=== PATIENT | male | born 1955 | race Caucasian/White ===

== ENCOUNTER 2019-10-03 19:22 | Emergency (ER) | payer SELFPAY ==
[2019-10-03] MEDS ORDERED: Aspirin Chewable 81 MG TAB ONE (19:40)
[2019-10-03] MEDS ORDERED: Enoxaparin Sodium 100 MG/ML SYRINGE ONE (19:41)
[2019-10-03] MEDS ORDERED: Nitroglycerin 2% Ointment 1 INCH/1 GM Packet ONE (19:41)
[2019-10-03] MEDS ORDERED: Metoprolol Tartrate 5 MG/5 ML VIAL ONE ×2 (19:46→19:57)
[2019-10-03 19:51] LABS: #Basophils 0.1 thou/uL (0.0-0.2); #Eosinphils 1.2 thou/uL (0.0-0.7); #Lymphocytes 1.9 thou/uL (1.20-3.40); #Monocytes 0.5 thou/uL (0.11-0.59); #Neutrophils 6.7 thou/uL (1.40-6.50); %Eosinophils 11.6 % (0.0-10.0); %Lymphocytes 17.9 % (21.0-51.0); %Monocytes 4.9 % (0.0-10.0); %Neutrophils 64.6 % (42.0-75.0); Hemoglobin 16.8 g/dL (14.0-18.0); Mean Corpuscular HGB CONC 34.2 g/dL (32.0-36.0); Mean Corpuscular Hemoglobin 31.3 pg (27.0-31.0); Mean Corpuscular Volume 91.4 fL (78.0-98.0); Mean Platelet Volume 10.9 fL (7.4-10.4); Platelet Count 224 thou/uL (130-400); RBC Distribution Width 11.4 % (11.5-14.5); Red Blood Cell (RBC) Count 5.36 mill/uL (4.70-6.10); White Blood Cell (WBC) Count 10.4 thou/uL (4.8-10.8)
--- NOTE | 2019-10-03 20:06 | RAD ---
PORTABLE CHEST 10/03/19 An AP portable film at 1932 shows a normal sized heart and clear lungs. There is prominence of the as cending aorta, made a little more so by slight rotation of the patient. This could be seen in patient s with hypertension and sometimes aortic valvular disease. I doubt am actual aneurysm. Calcific stringer es are seen in the aortic arch. There is no vascular congestion, edema, or other acute change. IMPRESSION: No acute thoracic findings. POS: HOME
[2019-10-03 20:07] LABS: ALT (SGPT) 29 U/L (8-55); AST (SGOT) 16 U/L (5-34); Albumin 4.3 g/dL (3.4-4.8); Alkaline Phosphatase 91 U/L (40-110); Anion Gap 19 mmol/L (10-20); BUN (Urea Nitrogen) 24 mg/dL (8.4-25.7); Bilirubin, Total 0.2 mg/dL (0.2-1.2); Calc. Creatinine Clearance 0 mL/min (70-130); Calcium 9.3 mg/dL (7.8-10.44); Carbon Dioxide 20 mmol/L (23-31); Chloride 106 mmol/L (98-107); Estimated GFR-MDRD 59; Globulin 3.2 g/dL (2.4-3.5); Glucose 165 mg/dL (80-115); Potassium 4.2 mmol/L (3.5-5.1); Protein, Total 7.5 g/dL (5.8-8.1); Sodium 141 mmol/L (136-145)
[2019-10-03 20:24] LABS: CKMB 4.1 ng/mL (0-6.6)
== END 2019-10-03 20:17 | disposition home or self-care (01) ==
LOC: BURERS 19:22
DX: I21.3 ST elevation (STEMI) myocardial infarction of unspecified site (principal); I48.91 Unspecified atrial fibrillation; F17.210 Nicotine dependence, cigarettes, uncomplicated; Z79.899 Other long term (current) drug therapy; Z79.82 Long term (current) use of aspirin
CPT/HCPCS: 71045; 80053; 82553; 83880; 84484; 85025; 93005; 94760; 96372; 96374; J1650